=== PATIENT | male | born 1950 | race Caucasian/White ===

== ENCOUNTER → 2016-11-17 | Outpatient (CLI) | payer MEDICARE, OTHER ==
[2014-06-08 11:00] VITALS: BP 165/81
[~2016-11-17] MED LIST: ACET325T9 PO; ACET500T33 PO; AMIO200T2 PO; ASPI-482 PO; LISI-334 PO; LISI10TA2 PO; LISI1TAB3 PO; MELA5TAB PO; METO25TA4 PO; NAPR220C4 PO; OXYC1TAB7 PO; REGADENOSON 0.4 MG/5 ML DISP.SYRIN. IV ONE
--- NOTE | 2016-11-17 21:10 | RAD ---
APPROVED REPORT Test Type: Pharmacological Stress Nurse/Tech: Dorie Vazquez RN Test Indications: Dyspnea on Exertion, fatigue Cardiac History: see EHR Medications: see EHR Medical History: see EHR Resting ECG: Sinus Bradycardia Resting Heart Rate: 58 bpm Resting Blood Pressure: 133/70mmHg Pretest Chest Pain: None Nurse/Tech Notes Lungs CTA, S1S2 Consent: The procedure was explained to the patient in lay terms. Informed consent was witnessed. Brent eout was entered into [employer]. History and Stress Test performed by Daren DollNDavonte Pharm. Details Pharmacologic stress testing was performed using 0.4mg per 5ml of regadenoson given intravenously ove r 7-10 seconds. Stress Symptoms No chest pain or symptoms. POST EXERCISE Reason for Termination: Infusion complete Max HR: 93 bpm Max Blood Pressure: 128/64mmHg Chest Pain: No. Arrhythmia: No. ST Change: No. INTERPRETATION Stress EKG Conclusion: No acute changes were noted. Imaging Protocol IMAGE PROTOCOL: Rest Tc-99m/stress Tc-99m 1 day Rest: Stress: Viability: Radiopharm.Tc99m PobnwzrncJa73e Sestamibi Dose10.5mCi 34mCi Duration 15min. 10min. Img Date 11/17/2016 11/17/2016 Inj-Img [id number]. 60min. Rest Admin Site:IV - Right AntecubitalAdministrator:RT Reynaldo (R)(N) Stress Admin Site: IV - Right AntecubitalAdministrator: GUERRERO Buchanan STRESS DATA End Diast. Vol.143.0mlAv. Heart Rate60.0bpm End Syst. Vol.38.0mlCO Index BSA0.0L/min Myocardial Ganl477.0gEject. Jbyzifmd01.0% Stress Rates Pk. Fill Rate2.77EDV/secLVtime Pk. Fill 196.64msec Pk. Empty Rate3.00ESV/secLVtime Pk. Vuagx282.45msec 08/23 Pk. Fill1.26EDV/sec Stress Scores Regional WT0.00Summed WT0.00 Regional WM0.00Summed WM0.00 LV Perf. Quant 17 Seg. SSS0.00 17 Seg. SRS1.00 17 Seg. SDS0.00 Stress Defect Extent (% LAD)0.00Rest Defect Extent (% LAD)0.00Rev. Defect Extent (% LAD)0.00 Stress Defect Extent (% LCX) 0.00Rest Defect Extent (% LCX)0.00Rev. Defect Extent (% LCX)0.00 Stress Defect Extent (% RCA)0.00Rest Defect Extent (% RCA)0.00Rev. Defect Extent (% RCA)0.00 Stress Defect Extent (% AURELIA)0.00Rest Defect Extent (% AURELIA)0.00Rev. Defect Extent (% AURELIA)0.00 Conclusion 1. No electrocardiographic changes suggestive of myocardial ischemia pharmacological stress. 2. No perfusion defects suggest myocardial ischemia or scar. 3. Normal wall motion and wall thickening and ejection fraction of 73%. 4. Scan indicates low risk for future cardiac events.
== END | disposition home or self-care (01) ==
LOC: NM 07:56
PROVIDERS: ATTEND Physician Assistant Medical
DX: Z95.2 Presence of prosthetic heart valve (principal); R53.83 Other fatigue; R06.09 Other forms of dyspnea; E78.2 Mixed hyperlipidemia
CPT/HCPCS: 78452; 93017; 96374; 96375; 96376; A9500; J2785

== ENCOUNTER → 2018-10-08 | Outpatient (CLI) | payer MEDICARE, OTHER ==
[2014-06-08 11:00] VITALS: BP 165/81
[~2018-10-08] MED LIST changes: -AMIO200T2 PO; +AMIO200T4 PO; -REGADENOSON 0.4 MG/5 ML DISP.SYRIN. IV ONE
--- NOTE | 2018-10-08 12:33 | CARD ---
MR#: [id number] Date of Study: 10/08/2018 Ordering Physician: EZEQUIEL SCHAEFFER, Referring Physician: EZEQUIEL SCHAEFFER, Tech: Erinn Dunham APPROVED REPORT EXAM: Two-dimensional and M-mode echocardiogram with Doppler and color Doppler. Other Information Quality : AverageHR: 120bpm INDICATION Aortic Valve Replacement / Porcine Valve LEFT VENTRICLE The left ventricle is normal size. There is moderate concentric left ventricular hypertrophy. The lef t ventricular systolic function is normal and the ejection fraction is within normal range. The Eject ion Fraction is 50-55%. There is normal LV segmental wall motion. Transmitral Doppler flow pattern is Grade II-pseudonormal filling dynamics. RIGHT VENTRICLE The right ventricle is normal size. There is normal right ventricular wall thickness. The right ventr icular systolic function is normal. ATRIA The left atrium is borderline dilated. The right atrium size is normal. The interatrial septum is int act with no evidence for an atrial septal defect or patent foramen ovale as noted on 2-D or Doppler i maging. AORTIC VALVE Doppler and Color Flow revealed no significant aortic regurgitation. There is no significant aortic v alvular stenosis. Calculated aortic valve area is 2.6 cm2 with maximum pressure gradient of 11 mmHg a nd mean pressure gradient of 6 mmHg. There is a porcine aortic valve prosthesis. 27mm by history. No well visualized. MITRAL VALVE The mitral valve is normal in structure and function. There is no evidence of mitral valve prolapse. There is no mitral valve stenosis. Doppler and Color-flow revealed trace mitral regurgitation. TRICUSPID VALVE The tricuspid valve is normal in structure and function. Doppler and Color Flow revealed trace tricus pid regurgitation. There is no tricuspid valve stenosis. PULMONIC VALVE The pulmonic valve is not well visualized. Doppler and Color Flow revealed trace pulmonic valvular re gurgitation. GREAT VESSELS The aortic root is normal in size. The IVC is normal in size and collapses >50% with inspiration. PERICARDIAL EFFUSION There is no evidence of significant pericardial effusion. Critical Notification Critical Value: No <Conclusion> The left ventricular systolic function is normal and the ejection fraction is within normal range. Th e Ejection Fraction is 50-55%. There is normal LV segmental wall motion. There is no significant aortic valvular stenosis. Calculated aortic valve area is 2.6 cm2 with maximu m pressure gradient of 11 mmHg and mean pressure gradient of 6 mmHg. There is a porcine aortic valve prosthesis. 27mm by history. Not well visualized. Signed by : Pedro Long, Electronically Approved : 10/08/2018 12:33:37
== END | disposition home or self-care (01) ==
LOC: ECHO 10:00
PROVIDERS: ATTEND Internal Medicine Cardiovascular Disease
DX: Z48.812 Encounter for surgical aftercare following surgery on the circulatory system (principal); I51.7 Cardiomegaly; Z95.2 Presence of prosthetic heart valve
CPT/HCPCS: 93306

== ENCOUNTER → 2019-02-19 | Outpatient (CLI) | payer SELFPAY ==
[2014-06-08 11:00] VITALS: BP 165/81
--- NOTE | 2019-02-19 16:46 | KCIC ---
Chest radiograph 02/19/2019 12:00 AM INDICATION: Acute bronchitis COMPARISON: June 30, 2014 TECHNIQUE: Frontal and lateral views of the chest are provided. FINDINGS: The cardiomediastinal silhouette is within normal limits. Median sternotomy changes are present. There are no pleural effusions. There is no pulmonary vascular congestion. There is no pneumothorax. Tree-in-bud nodular airspace disease identified in the left lower lobe which may represent infectious/inflammatory bronchiolitis. No significant osseous abnormality is identified. IMPRESSION: Tree-in-bud nodular airspace disease is identified in the left lower lobe which may represent infectious/inflammatory bronchiolitis. Recommended follow-up to resolution. Electronically signed by: Jaye Leslie MD (02/19/2019 4:44 PM) [facility]
== END | disposition home or self-care (01) ==
LOC: KCIC 12:24
PROVIDERS: ATTEND Physician Assistant Medical
DX: J98.4 Other disorders of lung (principal); J20.9 Acute bronchitis, unspecified
CPT/HCPCS: 71046

== ENCOUNTER → 2019-07-12 | Outpatient (CLI) | payer MEDICARE, OTHER ==
[2014-06-08 11:00] VITALS: BP 165/81
[~2019-07-12] MED LIST changes: +LISI1TAB23 PO; -LISI1TAB3 PO; +REGADENOSON 0.4 MG/5 ML DISP.SYRIN. IV ONE
--- NOTE | 2019-07-12 12:34 | RAD ---
MR#: [id number] Date of Study: 07/12/2019 Ordering Physician: EZEQUIEL SCHAEFFER, Referring Physician: LISETTE HARRELL Tech: RT Reynaldo (R) (N) APPROVED REPORT Test Type: Pharmacological Stress Nurse/Tech: Marla Marcos RN Test Indications: Dyspnea on exertion Cardiac History: Hypertension, High cholesterol, Aortic Valve Replacement 2013 Medications: See Electronic Medical Record Medical History: See Electronic Medical Record Resting ECG: SB Resting Heart Rate: 50 bpm Resting Blood Pressure: 112/62mmHg Pretest Chest Pain: No chest pain Nurse/Tech Notes S1S2, Lungs CTA Consent: The procedure was explained to the patient in lay terms. Informed consent was witnessed. Brent eout was entered into [employer]. History and Stress Test performed by RT Reynaldo (R) (N) Pharm. Details Pharmacologic stress testing was performed using 0.4mg per 5ml of regadenoson given intravenously ove r 7-10 seconds. Stress Symptoms Dyspnea POST EXERCISE Reason for Termination: Infusion complete Max HR: 108 bpm Max Blood Pressure: 117/55mmHg Blood Pressure response to exercise: Normal blood pressure response during stress. Heart Rate response to exercise: WNL Chest Pain: No. Arrhythmia: No. ST Change: No. INTERPRETATION Stress EKG Conclusion: Baseline EKG showed sinus rhythm. No ischemic changes at peak stress. No arr hythmias. Imaging Protocol IMAGE PROTOCOL: Rest Tc-99m/stress Tc-99m 1 day Rest: Stress: Viability: Radiopharm.Tc99m GkmylxbxtNm77r Sestamibi Dose10.6mCi 33mCi Duration 13min. 13min. Img Date 07/12/2019 07/12/2019 Inj-Img [id number]. 60min. Rest Admin Site:IV - Left AntecubitalAdministrator:RT Reynaldo (R)(N) Stress Admin Site: IV - Left AntecubitalAdministrator: LISETTE CrenshawTCBenjamín, ARRT (R)(N) STRESS DATA End Diast. Vol.129.0mlAv. Heart Rate57.0bpm End Syst. Vol.41.0mlCO Index BSA0.0L/min Myocardial Pltk678.0gEject. Bydsdhrz72.0% Stress Rates Pk. Fill Rate2.22EDV/secLVtime Pk. Fill 215.84msec Pk. Empty Rate3.28ESV/secLVtime Pk. Qhbjl088.87msec 1/3 Pk. Fill1.30EDV/sec Stress Scores Regional WT0.00Summed WT0.00 Regional WM0.00Summed WM0.00 Study quality was good. Left Ventricular size was Normal at Rest and Stress. Lung uptake was . Left Ventricular ejection fraction is 68%. The rest and stress images show normal perfusion, normal contraction and thickening. LV Perf. Quant 17 Seg. SSS0.00 17 Seg. SRS2.00 17 Seg. SDS0.00 Stress Defect Extent (% LAD)0.00Rest Defect Extent (% LAD)0.00Rev. Defect Extent (% LAD)0.00 Stress Defect Extent (% LCX) 0.00Rest Defect Extent (% LCX)5.00Rev. Defect Extent (% LCX)0.00 Stress Defect Extent (% RCA)0.00Rest Defect Extent (% RCA)0.00Rev. Defect Extent (% RCA)0.00 Stress Defect Extent (% AURELIA)0.00Rest Defect Extent (% AURELIA)2.20Rev. Defect Extent (% AURELIA)0.00 Conclusion 1. Regadenoson cardioisotope stress test did not show any evidence of ischemia or infarct. 2. Normal left ventricular systolic function with ejection fraction calculated at 68%. 3. Low risk for cardiac events. Signed by : Rojelio Rachel, Electronically Approved : 07/12/2019 12:34:24
--- NOTE | 2019-07-12 17:44 | RAD ---
MR#: [id number] Date of Study: 07/12/2019 Ordering Physician: EZEQUIEL SCHAEFFER, Referring Physician: EZEQUIEL SCHAEFFER, Tech: Erinn Colvin, RDMS, RVT, RTR APPROVED REPORT Patient Location: OUT-PATIENT Indications Claudication: VELOCITY AND DOPPLER WAVEFORM ANALYSIS RIGHT cm/secWaveformSeverity LEFT cm/secWaveform Severity pCFA 127.7BiphasicpCFA 113.0Triphasic Prof Fem Art. 86.1BiphasicProf Fem Art. 85.3Biphasic Fem Art Prox. 112.9BiphasicFem Art Prox. 91.1Biphasic Fem Art Mid. 111.1TriphasicFem Art Mid. 121.2Triphasic Fem Art Dist. 100.0BiphasicFem Art Dist. 115.7Biphasic Pop Art(AK) 67.2BiphasicPop Art(AK) 65.8Biphasic DIRECTOR OF MEDICAL STAFF SERVICES Prox. 47.7BiphasicPTA Prox. 50.6Biphasic DIRECTOR OF MEDICAL STAFF SERVICES Dist. 119.0TriphasicPTA Dist. 119.4Triphasic Per Art Prox. 81.0TriphasicPer Art Prox. 67.2Biphasic BELLE Prox. 54.4BiphasicATA Prox. 78.1Biphasic DPA 43BiphasicDPA 65Biphasic Findings Tatum scale images demonstrate mild diffuse plaque in the bilateral lower extremities. Spectral waveforms and color doppler are within normal limits. Velocities are grossly within normal l imits. Bilateral three vessel run-off noted. Critical Notification Critical Value: No <Conclusion> 1. No significant LE arterial disease. Signed by : Pedro Long, Electronically Approved : 07/12/2019 17:44:28
== END | disposition home or self-care (01) ==
LOC: NM 07:59
PROVIDERS: ATTEND Internal Medicine Cardiovascular Disease
DX: I70.203 Unspecified atherosclerosis of native arteries of extremities, bilateral legs (principal); I10 Essential (primary) hypertension; E78.00 Pure hypercholesterolemia, unspecified; R06.09 Other forms of dyspnea; Z95.2 Presence of prosthetic heart valve
CPT/HCPCS: 78452; 93017; 93925; A9500; J2785

== ENCOUNTER → 2021-01-19 | Outpatient (CLI) | payer MEDICARE, OTHER ==
[2014-06-08 11:00] VITALS: BP 165/81
[~2021-01-19] MED LIST changes: -AMIO200T4 PO; +AMIO200T6 PO; -LISI-334 PO; +LISI10TA16 PO; -LISI10TA2 PO; +LISI20TA18 PO; -REGADENOSON 0.4 MG/5 ML DISP.SYRIN. IV ONE
--- NOTE | 2021-01-20 10:59 | CARD ---
MR#: [id number] Date of Study: 01/19/2021 Ordering Physician: DANIE ENG, Referring Physician: DANIE ENG, Tech: Terri Bender [facility] APPROVED REPORT EXAM: Two-dimensional and M-mode echocardiogram with Doppler and color Doppler. Other Information Quality : AverageHR: 60bpm Rhythm : NSR INDICATION Aortic Valve Disease RISK FACTORS Hypertension Obesity Hyperlipidemia 2D DIMENSIONS RVDd3.5 (2.9-3.5cm)Left Atrium(2D)4.7 (1.6-4.0cm) IVSd1.4 (0.7-1.1cm)Aortic Root(2D)3.6 (2.0-3.7cm) LVDd4.2 (3.9-5.9cm)LVOT Diameter2.3 (1.8-2.4cm) PWd1.3 (0.7-1.1cm)LVDs3.1 (2.5-4.0cm) FS (%) 27.8 %SV43.3 ml Aortic Valve AoV Peak Yariel.181.0cm/sAoV VTI41.5cm AO Peak GR.13.1mmHgLVOT Peak Yariel.106.7cm/s AO Mean GR.6mmHgAVA (VMAX)2.55cm2 Mitral Valve MV E Goatirpz555.2cm/sMV DECEL PURT830an MV A Tzyoevep04.3cm/sE/A Ratio1.4 Pulmonary Valve PV Peak Uexatbgk137.0cm/s Tricuspid Valve TR P. Gzhnertt183sd/sTR Peak Gr.40mmHg Pulmonary Vein S1 Avkdkznn25.2cm/sD2 Uqahsgxa84.0cm/s PVa [id number] LEFT VENTRICLE The left ventricle is normal size. There is mild concentric left ventricular hypertrophy. The left ve ntricular systolic function is normal and the ejection fraction is within normal range. Estimated ej ection fraction 55-60%. There is normal LV segmental wall motion. The left ventricular diastolic func tion and filling is normal for age. RIGHT VENTRICLE The right ventricle is normal size. There is normal right ventricular wall thickness. The right ventr icular systolic function is normal. ATRIA The left atrium size is normal. The right atrium size is normal. The interatrial septum is intact wit h no evidence for an atrial septal defect or patent foramen ovale as noted on 2-D or Doppler imaging. AORTIC VALVE Doppler and Color Flow revealed no significant aortic regurgitation. There is no significant aortic v alvular stenosis. There are normal prosthetic aortic valve gradients. There is a bioprosthetic aortic valve prosthesis. MITRAL VALVE The mitral valve is normal in structure and function. There is no evidence of mitral valve prolapse. There is no mitral valve stenosis. Doppler and Color-flow revealed mild mitral regurgitation. TRICUSPID VALVE The tricuspid valve is normal in structure and function. Doppler and Color Flow revealed trace tricus pid regurgitation. Estimated PAP 35 mmHg. There is no tricuspid valve stenosis. PULMONIC VALVE The pulmonary valve is normal in structure and function. Doppler and Color Flow revealed trace pulmon ic valvular regurgitation. GREAT VESSELS The aortic root is mildly enlarged. The IVC is normal in size and collapses >50% with inspiration. PERICARDIAL EFFUSION There is no evidence of significant pericardial effusion. Critical Notification Critical Value: No <Conclusion> The left ventricle is normal size. The left ventricular systolic function is normal and the ejection fraction is within normal range. Estimated ejection fraction 55-60%. There is mild concentric left ventricular hypertrophy. There are normal prosthetic aortic valve gradients. There is a well seated bioprosthetic aortic valve prosthesis. Doppler and Color-flow revealed mild mitral regurgitation. Doppler and Color Flow revealed trace tricuspid regurgitation. Estimated PAP 35 mmHg. The aortic root is mildly enlarged. Signed by : Danie Eng MD Electronically Approved : 01/20/2021 10:58:59
== END ==
LOC: ECHO 08:34
PROVIDERS: ATTEND Internal Medicine Cardiovascular Disease
DX: I08.0 Rheumatic disorders of both mitral and aortic valves (principal); Z95.2 Presence of prosthetic heart valve
CPT/HCPCS: 93306